=== PATIENT | female | born 1955 | race Caucasian/White ===

== ENCOUNTER 2016-07-20 10:00 | Inpatient (IN) ==
[2016-07-20 13:00] LABS: Blood Urea Nitrogen 7 mg/dl (8-23)
[2016-07-20 13:46] LABS: Basophils # (Auto) 0 K/mcL (0.0-0.3); Basophils % (Auto) 0.4 % (0.0-2.0); Eosinophils # (Auto) 0.2 K/mcL (0.0-0.7); Eosinophils % (Auto) 3.2 % (0.0-7.0); Lymphocytes # (Auto) 2.4 K/mcL (1.5-4.8); Lymphocytes % (Auto) 35.3 % (15.5-49.0); Mean Cell Volume 91.5 fL (80.0-100.0); Mean Corpuscular Hemoglobin 31.1 pg (26.0-34.0); Monocytes # (Auto) 0.3 K/mcL (0.1-0.9); Monocytes % (Auto) 4.1 % (1.0-12.0); Platelet Count 264 K/mcL (140-440); RBC 4.66 M/mcL (4.00-5.20); Red Cell Distribution Width 12.6 % (11.5-14.5)
[2016-07-25] MEDS ORDERED: CELECOXIB 200 MG CAPSULE PO SCH (06:00)
[2016-07-25] MEDS ORDERED: ACETAMINOPHEN 500 MG TABLET PO SCH (06:00)
[2016-07-25] MEDS ORDERED: oxyCODONE 10 MG TAB.ER.12H PO SCH (06:00)
[2016-07-25] MEDS ORDERED: PREGABALIN 75 MG CAPSULE PO SCH (06:00)
[2016-07-25] MEDS ORDERED: ceFAZolin 1 GM VIAL IV SCH (06:00)
[2016-07-25] MEDS ORDERED: CLINDAMYCIN 600 MG in DEXTROSE 5% IN WATER 50 ML IV SCH (07:00)
[2016-07-25] MEDS ORDERED: GLYCOPYRROLATE 0.2 MG/ML VIAL IV ONE (09:50)
[2016-07-25] MEDS ORDERED: DEXAMETHASONE 10 MG/ML VIAL IV ONE (09:50)
[2016-07-25] MEDS ORDERED: PROPOFOL 200 MG/20 ML VIAL IV ONE (09:50)
[2016-07-25] MEDS ORDERED: TRANEXAMIC ACID 1,000 MG/10 ML VIAL IV ONE (09:50)
[2016-07-25] MEDS ORDERED: MIDAZOLAM 5 MG/5 ML VIAL IV ONE (09:50)
[2016-07-25] MEDS ORDERED: fentaNYL 250 MCG/5 ML VIAL IV ONE (09:50)
[2016-07-25] MEDS ORDERED: HYDROmorphone 2 MG/ML SYRINGE IV ONE (09:50)
[2016-07-25] MEDS ORDERED: KETAMINE 100 MG/ML ML IV ONE (09:50)
[2016-07-25] MEDS ORDERED: LIDOCAINE HCL/PF 100 MG/5 ML SYRINGE IV ONE (09:50)
[2016-07-25] MEDS ORDERED: ROCURONIUM 10 MG/ML ML IV ONE (09:50)
[2016-07-25] MEDS ORDERED: ONDANSETRON 4 MG/2 ML VIAL IV ONE (09:50)
[2016-07-25] MEDS ORDERED: PHENYLEPHRINE 10 MG/ML VIAL IV ONE (09:50)
[2016-07-25] MEDS ORDERED: ePHEDrine 50 MG/ML AMPUL IV ONE (09:50)
[2016-07-25] MEDS ORDERED: SUCCINYLCHOLINE 20 MG/ML ML IV ONE (09:50)
[2016-07-25] MEDS ORDERED: ROPIVACAINE HCL/PF 30 ML VIAL IJ ONE (09:50)
[2016-07-25 10:09] LABS: Appearance,Urine HAZY; Bilirubin,Urine NEG (NEG); Color,Urine AMBER; Glucose,Urine (UA) NEGATIVE (NEG); Leukocyte Esterase,Urine NEG /uL (NEG); Nitrate,Urine NEG (NEG); Protein,Urine NEG (NEG); Specific Gravity,Urine 1.023 (1.000-1.035); Urine Blood NEG mg/dL (<0.03)
[2016-07-25] MEDS ORDERED: GENTAMICIN SULFATE 800 MG/20 ML VIAL IR ONE (10:24)
[2016-07-25] MEDS ORDERED: diphenhydrAMINE 50 MG/ML VIAL IV PRN (10:43)
[2016-07-25] MEDS ORDERED: ePHEDrine 50 MG/ML AMPUL IV PRN (10:43)
[2016-07-25] MEDS ORDERED: HYDROmorphone 2 MG/ML SYRINGE IV PRN (10:43)
[2016-07-25] MEDS ORDERED: MEPERIDINE 25 MG/ML SYRINGE IV PRN (10:43)
[2016-07-25] MEDS ORDERED: LACTATED RINGERS 250 ML IV PRN (10:43)
[2016-07-25] MEDS ORDERED: METOCLOPRAMIDE 10 MG/2 ML VIAL IV PRN (10:43)
[2016-07-25] MEDS ORDERED: BENZOCAINE/MENTHOL 1 LOZENGE PO PRN (10:43)
[2016-07-25] MEDS ORDERED: fentaNYL 100 MCG/2 ML VIAL IV PRN (10:43)
[2016-07-25] MEDS ORDERED: NALOXONE HCL 0.4 MG/ML VIAL IV PRN (10:43)
[2016-07-25] MEDS ORDERED: MEPERIDINE 50 MG/ML SYRINGE IM ONE (10:43)
[2016-07-25] MEDS ORDERED: IPRATROPIUM/ALBUTEROL 3 ML AMPUL.NEB NEB PRN (10:43)
[2016-07-25] MEDS ORDERED: ONDANSETRON 4 MG/2 ML VIAL IV PRN (10:43)
[2016-07-25] MEDS ORDERED: METHOCARBAMOL 1,000 MG/10 ML VIAL IV PRN (10:43)
[2016-07-25] MEDS ORDERED: FLUMAZENIL 0.1 MG/ML ML IV PRN (10:43)
[2016-07-25] MEDS ORDERED: LACTATED RINGERS 1,000 ML IV SCH (10:45)
--- NOTE | 2016-07-25 11:14 | Brief Operative Note ---
Date of procedure: 07/25/16 Pre-op diagnosis: Right shoulder rca with bicep tendonopathy Post-op diagnosis: same Procedure: Right reverse tsa with bicep tenodesis Grafts/Implants: Yes Anesthesia: SHEILA Surgeon: Yannick Jimenez Model And Mold Maker: Tank Vasquez Estimated blood loss (cc): 150 Specimens Removed/Pathology: none sent Condition: stable Disposition: PACU
[2016-07-25] MEDS ORDERED: HYDROCODONE/APAP 7.5/325MG TABLET PO PRN (11:18)
[2016-07-25] MEDS ORDERED: CARISOPRODOL 350 MG TABLET PO PRN (11:18)
--- NOTE | 2016-07-25 12:14 | Operative Note ---
DATE OF OPERATION: 07/25/2016 PREOPERATIVE DIAGNOSIS: Right shoulder rotator cuff arthropathy and biceps tendinopathy. POSTOPERATIVE DIAGNOSIS: Right shoulder rotator cuff arthropathy and biceps tendinopathy. PROCEDURE: Right reverse total shoulder arthroplasty with removal of one anchor and biceps tenodesis. SURGEON: Yannick Jimenez MD. RN INTERVENTIONAL: Tank Vasquez PA-C. ANESTHESIA: General LMA anesthesia. COMPLICATIONS: None. ESTIMATED BLOOD LOSS: About 150 mL. IMPLANTS: A size 11 cementless stem, Metaglene with four screws per nurse's note, and a 36 mm spherical Metaglene covering with 2 mm of offset. The glenosphere had no eccentricity. We did trial a 36 x 6 mm of offset. This seemed to be too tight. DESCRIPTION OF PROCEDURE: The patient was brought to the operating room and put to sleep with general LMA anesthesia. Once asleep, the patient had the right shoulder sterilely prepped and draped in the usual sterile fashion. Once the patient had clindamycin and tranexamic acid, we confirmed the operative site. We then placed Ioban over the skin and made a deltopectoral approach. Once this was done, we then identified the cephalic vein. This was retracted laterally with the deltoid. Lilly retractor was placed, conjoined tendon medially. I released the remnants of the subscap, released the remnants of the biceps tendon. The biceps tendon was connected back to the pectoralis major with two [id number] stitches. We irrigated thoroughly. We then made our neck cut at the surgical neck region using the guide with 30 degrees of retroversion. We then exposed the joint using retractors and performed a 360 degree capsulotomy, placed the pin centrally with a 10-degree inclination. We placed the metaglene with a central screw of 32 mm, and the remaining screws were 28, 28 and 32. This fit very well. We placed a 36 mm glenosphere which was 6 mm of offset initially, but this seemed to be too tight. After trialing, we then placed a 36 with 2 mm of offset. We then prepared the humerus. We then broached up to a size 11 and trialed a size 11. There was an anchor in place. We removed the anchor. We then inserted the final implant which was an 11 cementless stem with a +6 poly. We irrigated thoroughly, repaired the subscap with #2 Ethibond. This seemed to fit very nicely through the range of motion. Shoulder was very stable. We irrigated thoroughly, closed the deltopectoral interval with 2-0 Vicryl, and closed the skin with 2-0 Vicryl and adhesive closure. Sterile bandage applied. The patient was fitted and given a Donjoy sling at the end of the case. RBH:haim Job ID: [id number] Doc ID: [id number] Yannick Jimenez MD
--- NOTE | 2016-07-25 12:39 | XRay Report ---
CLINICAL INFORMATION: Postsurgical follow-up TECHNIQUE: Two view right shoulder COMPARISON: None. FINDINGS: Status post right reverse shoulder arthroplasty. Alignment is anatomic. IMPRESSION: Status right reverse shoulder arthroplasty Interpreted and Authenticated by: Corwin Guevara 07/25/16
--- NOTE | 2016-07-25 15:18 | Discharge Summary ---
Ortho Discharge - TSA - Patient Instructions Diet: Regular Diet Activity: activity as tolerated, weight bearing as tolerated Total Shoulder Protocol: Leave immobilizer in place except for bathing and ROM. Abduction pillow. Continue to wear sling until seen by physician. Codman Pendulum : These exercises use momentum produced by your body to move your shoulder joint. Bend your knees and shift your weight to your front leg, then back, allowing your arm to swing in the same directions. Using the same technique, alternately shift your weight between your right and left legs, allowing your arm to swing from side to side. These exercises are also performed in counterclockwise and clockwise circular motions. Typically these exercises are performed several times per day, for a set number repetitions or minutes, such as 20 times in a row or 5 minutes at a time. Dressing Care: Aquacel Ag - leave on for 5 days Patient Education: Hydrocodone/Acetaminophen (By mouth), Shoulder Arthroplasty (DC) Additional Instructions: Discharge Instructions: Call [facility] in 2 weeks for an appointment after you see Dr Jimenez. [phone]. [address] [facility] [place]. Your orders have been faxed to them. Do the exercises at home that physical therapy gave you. Take your prescription, photo ID, insurance cards, and current medication list with you to your first physical therapy appointment. Wear comfortable clothing for your physical therapy. Weight bearing as tolerated. Keep incision clean and dry. If you have Dermabond (a dressing with a mesh-like appearance), leave open to air. You may start showering on post op day #2. The Dermabond dressing can get wet, do not scrub dressing. Pat dry. To avoid constipation while taking any narcotic pain medication, take an over the counter stool softener/laxative. Use ice packs on for 20 minutes at a time throughout the day. This and elevation will help with pain and swelling. Call your physician for fevers above 100.5 or pain not controlled by medication. Your prescriptions for aspirin was electronically sent to [facility] - Follow Up Plan Disposition: Home, Self-Care Prognosis: Good Rehab Potential: Good Overall status at discharge: patient is progressing back to baseline - Orders For Discharge Prescriptions: Aspirin [Ecotrin] 325 mg PO BID #28 tab.ec HYDROcodone/APAP 10/325MG [[place] 10/325Mg] 1 - 2 tab PO Q4H PRN #60 tablet PRN Reason: Pain Additional Discharge Orders: Physical Therapy at Discharge - TSA Location: Determined By Patient Brace/Splint Location: Determined By Patient
[2016-07-26] MEDS ORDERED: LEVOTHYROXINE 25 MCG TABLET PO SCH (07:30)
[2016-07-26] MEDS ORDERED: PANTOPRAZOLE 40 MG TABLET PO SCH (07:30)
[2016-07-26] MEDS ORDERED: LIOTHYRONINE 5 MCG TABLET PO SCH (09:00)
[2016-07-26] MEDS ORDERED: ESTRADIOL 1 MG TABLET PO SCH (09:00)
== END 2016-07-25 16:45 | disposition home or self-care (01) | DRG 483 ==
LOC: MEDSUR 07-25 07:30
PROVIDERS: ADMIT Orthopaedic Surgery; ATTEND Orthopaedic Surgery